=== PATIENT | female | born 1945 | race Caucasian/White ===

== ENCOUNTER → 2018-08-19 | Outpatient (CLI) | payer MEDICARE, OTHER | END | disposition home or self-care (01) | LOC: CFH 09:43 | PROVIDERS: ATTEND Obstetrics & Gynecology Female Pelvic Medicine and Reconstructive Surgery | DX: D25.9 Leiomyoma of uterus, unspecified (principal) | CPT/HCPCS: 76830 ==

== ENCOUNTER → 2018-09-11 | Outpatient (CLI) | payer MEDICARE, OTHER | END | disposition home or self-care (01) | LOC: CFH 08:10 | PROVIDERS: ATTEND Obstetrics & Gynecology Female Pelvic Medicine and Reconstructive Surgery | DX: Z12.31 Encounter for screening mammogram for malignant neoplasm of breast (principal) | CPT/HCPCS: 77063; 77067 ==

== ENCOUNTER → 2019-01-08 | Outpatient (CLI) | payer MEDICARE, OTHER ==
[~2019-01-08] MED LIST: ACET-1600 PO; ASPI325T17 PO; CALC1CAP8 PO; CARB15DR74 EACHEYE; CHOL5000 PO; GABA100C PO; GLUC1CAP18 PO; METO25TA35 PO; MULT-717 PO; NITR0.4T SL; OMEG1CAP39 PO; ROSU20TA2 PO; TURM500C4 PO; UBID100C41 PO
[2019-01-08 10:30] LABS: BASOPHILS # (AUTO) 0.03 x10^3/uL (0-0.1); BASOPHILS % (AUTO) 0 % (0-1); EOSINOPHILS # (AUTO) 0.11 x10^3/uL (0-0.4); EOSINOPHILS % (AUTO) 1 % (1-7); LYMPHOCYTES # (AUTO) 2.13 x10^3/uL (1-3.4); LYMPHOCYTES % (AUTO) 27 % (22-44); MD NO; MEAN CORPUSCULAR HEMOGLOBIN 30.8 pg (27.0-34.8); MEAN CORPUSCULAR HGB CONC 33.9 g/dL (32.4-35.8); MEAN CORPUSCULAR VOLUME 90.9 fL (80-100); MEAN PLATELET VOLUME 9.7 fL (7.4-10.4); MONOCYTES # (AUTO) 0.48 x10^3/uL (0.2-0.8); MONOCYTES % (AUTO) 6 % (2-9); NEUTROPHILS % (AUTO) 65 % (42-75); PLATELET COUNT 211 x10^3/uL (130-400); RED BLOOD COUNT 4.83 x10^6/uL (3.82-5.3); RED CELL DISTRIBUTION WIDTH 13.6 % (9.6-15.2)
[2019-01-08 10:39] LABS: ANION GAP 4 mmol/L (5-15); CALCIUM 9.5 mg/dL (8.5-10.1); CHLORIDE 106 mmol/L (98-107); CREATININE 0.64 mg/dL (0.55-1.02)
== END | disposition home or self-care (01) ==
LOC: STAR 08:59
PROVIDERS: ATTEND Obstetrics & Gynecology Female Pelvic Medicine and Reconstructive Surgery
DX: Z01.818 Encounter for other preprocedural examination (principal); N95.0 Postmenopausal bleeding; Z88.6 Allergy status to analgesic agent; Z88.1 Allergy status to other antibiotic agents
CPT/HCPCS: 36415; 71046; 80048; 85025; 93005

== ENCOUNTER → 2019-01-22 | Outpatient (CLI) | payer MEDICARE, OTHER ==
[~2019-01-22] MED LIST changes: +REGADENOSON 0.4 MG/5 ML SYRINGE ONE
== END | disposition home or self-care (01) ==
LOC: CFH 11:57
DX: Z01.810 Encounter for preprocedural cardiovascular examination (principal)
CPT/HCPCS: 78452; 93017; A9502; J2785

== ENCOUNTER 2019-02-13 07:44 | Outpatient (CLI) | payer MEDICARE, OTHER ==
[~2019-02-13 07:44] MED LIST changes: -REGADENOSON 0.4 MG/5 ML SYRINGE ONE
[2019-02-13] MEDS ORDERED: EVOL140P INJ (09:02)
== END 2019-02-13 23:59 | disposition home or self-care (01) ==
LOC: STAR 07:44
PROVIDERS: ATTEND Obstetrics & Gynecology Female Pelvic Medicine and Reconstructive Surgery
DX: Z02.9 Encounter for administrative examinations, unspecified (principal)

== ENCOUNTER 2019-02-23 05:37 | Observation (INO) | payer MEDICARE, OTHER ==
[~2019-02-23] VITALS: Ht 149.9 cm; Wt 63.3 kg
[~2019-02-23 05:37] MED LIST changes: +EVOL140P INJ
[2019-02-23] MEDS ORDERED: LACTATED RINGERS 1,000 ML IV SCH ×2 (06:19→08:08)
[2019-02-23 06:22] VITALS: BP 149/90
[2019-02-23] MEDS ORDERED: DEXAMETHASONE 4 MG/ML, 1ML ONE ×2 (06:34)
[2019-02-23] MEDS ORDERED: FENTANYL PF 250 MCG/5ML ONE (06:34)
[2019-02-23] MEDS ORDERED: CEFAZOLIN 1,000 MG ONE ×2 (06:36)
[2019-02-23] MEDS ORDERED: SODIUM CHLORIDE 0.9% PF 10ML ONE (06:36)
[2019-02-23] MEDS ORDERED: PROPOFOL 10 MG/ML, 20ML ONE (06:37)
[2019-02-23] MEDS ORDERED: EPINEPHRINE 1 MG/ML, 1ML ONE (07:01)
[2019-02-23] MEDS ORDERED: SILVER NITRATE STICK TP ONE (07:01)
[2019-02-23] MEDS ORDERED: BUPIVACAINE/PF 0.25% ONE (07:01)
[2019-02-23] MEDS ORDERED: ONDANSETRON 2MG/ML, 2ML ONE (07:28)
[2019-02-23] MEDS ORDERED: PROMETHAZINE 25 MG/ML, 1ML IM PRN ×2 (07:30)
[2019-02-23] MEDS ORDERED: ONDANSETRON 2MG/ML, 2ML IV PRN (07:30)
[2019-02-23] MEDS ORDERED: HYDROmorphone 2 MG/ML, 1ML IVPush PRN (07:30)
[2019-02-23] MEDS ORDERED: ONDANSETRON ODT 8 MG PO PRN (07:30)
[2019-02-23] MEDS ORDERED: LABETALOL 5MG/ML, 20ML IV PRN (07:30)
[2019-02-23] MEDS ORDERED: PROMETHAZINE 25 MG SUPP PR PRN (07:30)
[2019-02-23] MEDS ORDERED: PROMETHAZINE 25 MG/ML, 1ML IV PRN (07:30)
[2019-02-23] MEDS ORDERED: MORPHINE SULFATE 4 MG/ML, 1ML IVPush PRN (07:30)
[2019-02-23] MEDS ORDERED: MEPERIDINE/PF 25MG/0.5ML IVPush PRN (07:30)
[2019-02-23] MEDS ORDERED: OXYcodone 5 MG/5 ML ORAL.SOL UDC PO PRN (07:30)
[2019-02-23] MEDS ORDERED: PROMETHAZINE 12.5 MG SUPP PR PRN (07:30)
[2019-02-23] MEDS ORDERED: hydrALAzine 20 MG/ML, 1ML IV PRN (07:30)
[2019-02-23] MEDS ORDERED: ACETAMINOPHEN 325 MG TABLET PO PRN ×2 (07:30→11:00)
[2019-02-23] MEDS ORDERED: FENTANYL PF 100 MCG/2ML IV PRN (07:30)
[2019-02-23] MEDS ORDERED: HALOPERIDOL 5 MG/ML IV PRN (07:30)
[2019-02-23] MEDS ORDERED: ONDANSETRON 2MG/ML, 2ML IVPush PRN ×2 (08:30→11:00)
[2019-02-23] MEDS ORDERED: NITROGLYCERIN SINGLE TAB 0.4 MG SL STA (09:46)
[2019-02-23] MEDS ORDERED: BISACODYL 10 MG SUPP PR PRN (11:00)
[2019-02-23] MEDS ORDERED: morphine SULFATE 10 MG/ML, 1ML IV PRN (11:00)
[2019-02-23] MEDS ORDERED: NITROGLYCERIN 0.4 MG BOTTLE (25 TABS) SL PRN (11:00)
[2019-02-23] MEDS: GABAPENTIN 100 MG CAPSULE PO SCH ×3 (11:00→20:54)
[2019-02-23] MEDS ORDERED: NITROGLYCERIN 0.4 MG/SPRAY SL PRN (11:00)
[2019-02-23] MEDS: METOPROLOL TARTRATE 25 MG TABLET PO SCH ×2 (11:00→20:54)
[2019-02-23] MEDS ORDERED: ZOLPIDEM 5MG TABLET PO PRN (11:00)
[2019-02-23 11:59] LABS: CHOL/HDL RATIO 2.8; CHOLESTEROL, TOTAL 210 mg/dL (140-239); HDL CHOL % 36 % (28-40); HDL CHOLESTEROL (DIRECT) 76 mg/dL (40-60); LDL CHOLESTEROL,CALCULATED 109 mg/dL (54-169); LDL/HDL RATIO 1.4 (0.5-3.0); TRIGLYCERIDES 127 mg/dL (50-200); TROPONIN I < 0.015 ng/mL (0.000-0.045); VLDL CHOLESTEROL 25 mg/dL (0-25)
[2019-02-23 12:10] VITALS: BP 127/75
[2019-02-23 12:11] VITALS: BP 118/73
[2019-02-23 12:12] VITALS: BP 125/75
[2019-02-23 13:51] LABS: TROPONIN I < 0.015 ng/mL (0.000-0.045)
[2019-02-23] MEDS: SODIUM CHLORIDE FLUSH 10ML SYR IVF SCH ×2 (15:45→21:00)
[2019-02-23 17:24] LABS: TROPONIN I < 0.015 ng/mL (0.000-0.045)
[2019-02-23 19:04] VITALS: BP_SYST 107; BP_SYST 124; BP_SYST 125; BP_DIAS 61; BP_DIAS 72; BP_DIAS 75
[2019-02-24 00:30] VITALS: BP 137/79
[2019-02-24 05:10] LABS: MEAN CORPUSCULAR HEMOGLOBIN 30.3 pg (27.0-34.8); MEAN CORPUSCULAR HGB CONC 33.9 g/dL (32.4-35.8); MEAN CORPUSCULAR VOLUME 89.4 fL (80-100); MEAN PLATELET VOLUME 9.2 fL (7.4-10.4); PLATELET COUNT 202 x10^3/uL (130-400); RED BLOOD COUNT 4.55 x10^6/uL (3.82-5.3); RED CELL DISTRIBUTION WIDTH 13.5 % (9.6-15.2)
[2019-02-24 05:19] LABS: ALANINE AMINOTRANSFERASE 20 U/L (12-78); ALBUMIN 3.3 g/dL (3.4-5.0); ANION GAP 5 mmol/L (5-15); CALCIUM 8.9 mg/dL (8.5-10.1); CHLORIDE 111 mmol/L (98-107); CREATININE 0.76 mg/dL (0.55-1.02)
[2019-02-24 05:22] LABS: ALKALINE PHOSPHATASE 67 U/L (45-117); BILIRUBIN,TOTAL 0.3 mg/dL (0.2-1.0); TOTAL PROTEIN 6.4 g/dL (6.4-8.2)
[2019-02-24] MEDS ORDERED: ASPIRIN 325 MG TABLET EC PO SCH (06:00)
[2019-02-24 08:02] VITALS: BP 129/78
[2019-02-24 08:03] VITALS: BP_SYST 119; BP_SYST 124; BP_DIAS 70; BP_DIAS 77
[2019-02-24] MEDS: SODIUM CHLORIDE FLUSH 10ML SYR IVF SCH (08:10)
[2019-02-24] MEDS: METOPROLOL TARTRATE 25 MG TABLET PO SCH (08:11)
[2019-02-24] MEDS: GABAPENTIN 100 MG CAPSULE PO SCH (08:11)
[2019-02-24] MEDS ORDERED: ASPIRIN 325 MG TABLET PO SCH (09:00)
== END 2019-02-24 10:06 | disposition home or self-care (01) ==
LOC: OUT 05:37 → ORIP 10:37 → 5SO 11:59 → DCLOUNGE 02-24 09:54
PROVIDERS: ADMIT Obstetrics & Gynecology Female Pelvic Medicine and Reconstructive Surgery; ATTEND Obstetrics & Gynecology Female Pelvic Medicine and Reconstructive Surgery
DX: N95.0 Postmenopausal bleeding (principal); D25.9 Leiomyoma of uterus, unspecified; I25.10 Atherosclerotic heart disease of native coronary artery without angina pectoris; N84.0 Polyp of corpus uteri; E78.5 Hyperlipidemia, unspecified; I25.2 Old myocardial infarction; G89.18 Other acute postprocedural pain; R07.89 Other chest pain; Z82.49 Family history of ischemic heart disease and other diseases of the circulatory system; Z95.5 Presence of coronary angioplasty implant and graft
CPT/HCPCS: 36415; 58558; 71046; 80053; 80061; 84484; 85027; 88305; 93005; G0378; J0171; J1100; J2405; J2704; J3010; J3490; J7120; J0690

== ENCOUNTER → 2019-09-28 | Outpatient (CLI) | payer MEDICARE, OTHER ==
[~2019-09-28] MED LIST changes: -NITR0.4T SL; +NITR0.4T41 SL
== END | disposition home or self-care (01) ==
LOC: CFH 09:38
PROVIDERS: ATTEND Obstetrics & Gynecology Female Pelvic Medicine and Reconstructive Surgery
DX: Z13.820 Encounter for screening for osteoporosis (principal); M85.88 Other specified disorders of bone density and structure, other site; Z78.0 Asymptomatic menopausal state
CPT/HCPCS: 77080

== ENCOUNTER → 2019-10-12 | Outpatient (CLI) | payer MEDICARE, OTHER | END | disposition home or self-care (01) | LOC: CFH 07:00 | PROVIDERS: ATTEND Obstetrics & Gynecology Female Pelvic Medicine and Reconstructive Surgery | DX: R92.2 Inconclusive mammogram (principal); Z78.0 Asymptomatic menopausal state | CPT/HCPCS: 77066; G0279 ==

== ENCOUNTER → 2020-10-17 | Outpatient (CLI) | payer MEDICARE, OTHER ==
[~2020-10-17] MED LIST changes: -EVOL140P INJ; +EVOL140P3 INJ
== END | disposition home or self-care (01) ==
LOC: CFH 10:15
PROVIDERS: ATTEND Obstetrics & Gynecology Female Pelvic Medicine and Reconstructive Surgery
DX: Z12.31 Encounter for screening mammogram for malignant neoplasm of breast (principal)
CPT/HCPCS: 77063; 77067